=== PATIENT | female | born 1970 | race Caucasian/White ===

== ENCOUNTER 2020-04-01 16:10 | Emergency (ER) | payer OTHER ==
[~2020-04-01] VITALS: Ht 157.5 cm; Wt 47.6 kg
[~2020-04-01 16:10] MED LIST: ACETAMINOPHEN-1 EAC1 PO; AMOXICILLIN 50500 MG PO; AMOXICILLIN500 M1 PO; ATIVAN1 MG PO; BENADRYL ALLERG25 MG PO; FLEXERIL PO; HYDROCODON-ACE1 EACH PO; K-DUR 20 MEQ T20 MEQ PO; KEFLEX500 MG PO; LIBRAX PO; NOHOMEMEDICATIONS; NORCO 5-325 TA1 EACH PO; PAXIL20 MG PO; PERCOCET 5-3251 EACH PO; PROPRANOLOL 1010 MG PO; ROBAXIN500 MG PO; TYLENOL EX-STR500 M2 PO; ULTRAM 50MG TAB50 MG PO; XANAX 0.25 MG0.25 MG PO; XANAX1 MG PO
[2020-04-01 18:07] LABS: URINE BILIRUBIN NEGATIVE (Negative); URINE BLOOD 1+ (Negative); URINE COLOR YELLOW; URINE GLUCOSE-RANDOM NEGATIVE (Negative); URINE KETONES NEGATIVE (Negative); URINE LEUKOCYTES-REFLEX NEGATIVE (Negative); URINE NITRITE-REFLEX NEGATIVE (Negative); URINE PROTEIN NEGATIVE (Negative); URINE SPECIFIC GRAVITY <= 1.005 (1.005-1.030); URINE UROBILINOGEN 0.2 E.U./dl (0.2-1.0)
[2020-04-01 18:12] LABS: URINE CLARITY HAZY
[2020-04-01 18:24] LABS: BACTERIA-REFLEX None Seen /HPF (None Seen); CASTS None Seen /LPF (None Seen); CRYSTALS None Seen /LPF (None Seen); SQUAMOUS 4-10 Moderate /LPF (0-3); URINE RBC 0-2 Rare /HPF (0-2); URINE WBC-REFLEX None Seen /HPF (0-5)
[2020-04-01 18:47] LABS: ABSOLUTE BASOPHILS 0.1 thou/uL (0.0-0.2); ABSOLUTE EOSINOPHILS 0.2 thou/uL (0.0-0.7); ABSOLUTE LYMPHOCYTES 2.4 thou/uL (0.8-5.3); ABSOLUTE MONOCYTES 0.6 thou/uL (0.0-1.2); ABSOLUTE NEUTROPHILS 4.7 thou/uL (1.6-8.1); BASOPHILS 0.8 %; EOSINOPHILS 2.4 %; HEMATOCRIT 38.7 % (37.0-47.0); HEMOGLOBIN 13.4 gm/dL (12.0-15.0); LYMPHOCYTES 30.6 %; MCH 32.5 pg (26.0-34.0); MCHC 34.7 g/dL (28.0-37.0); MCV 93.4 fL (80.0-100.0); MONOCYTES 7.1 %; MPV 7.3 fl. (7.2-11.1); NUCLEATED RBCS 0 /100WBC; PLATELET COUNT* 302 thou/uL (150-400); POLYS 59.1 %; RBC 4.14 mil/uL (4.20-5.00); RDW-CV 13.4 % (10.5-14.5); WBC 7.9 thou/uL (4.0-11.0)
[2020-04-01 19:05] LABS: CALCIUM 9.1 mg/dL (8.5-10.1); CREATININE 0.8 mg/dL (0.6-1.3); POTASSIUM 3.5 mmol/L (3.5-5.1)
[2020-04-01 19:10] LABS: ALBUMIN 3.9 g/dL (3.4-5.0); TOTAL BILIRUBIN 0.5 mg/dL (<0.1-1.0); TOTAL PROTEIN 7.7 g/dL (6.4-8.2)
[2020-04-01] MEDS ORDERED: FLEXERIL PO (19:58)
[2020-04-01] MEDS ORDERED: PERCOCET PO (19:58)
[2020-04-01] MEDS ORDERED: ONDANSETRON HCL4 M2 PO (19:58)
[2020-04-01] MEDS ORDERED: NAPROSYN500 MG PO (19:58)
[2020-04-01 20:23] VITALS: BP 114/66
== END 2020-04-01 20:24 | disposition home or self-care (01) ==
LOC: M.ERS 16:10
PROVIDERS: Nurse Practitioner Family
DX: M54.5 Low back pain (principal); F17.210 Nicotine dependence, cigarettes, uncomplicated; Z98.51 Tubal ligation status